=== PATIENT | male | born 1975 ===

== ENCOUNTER 2017-06-16 02:07 | Emergency (ER) | payer SELFPAY ==
--- NOTE | 2017-06-16 02:23 | C.PDOC ---
History Of Present Illness 42 y/o male brought in by EMS for public intoxication. Patient was reportedly found on bus and refused to get off. He offers no physical complaints at this time. No suicidal or homicidal ideation. Time Seen by Provider: 06/16/17 02:22 Chief Complaint (Nursing): Substance Abuse History Per: Patient History/Exam Limitations: no limitations Onset/Duration Of Symptoms: Hrs Current Symptoms Are (Timing): Still Present Suicide/Self Injury Attempted (Context): None Modifying Factor(s): Alcohol Severity: None Pain Scale Rating Of: 0 Involuntary Hold By: None Recent travel outside of the [place]: No Additional History Per: EMS Past Medical History Reviewed: Historical Data, Nursing Documentation, Vital Signs Vital Signs: Last Vital Signs Temp 98.1 F 06/16/17 02:10 Pulse 78 06/16/17 02:10 Resp 18 06/16/17 02:10 BP 119/83 06/16/17 02:10 Pulse Ox 98 06/16/17 02:50 - Medical History PMH: No Chronic Diseases Surgical History: No Surg Hx Family History: States: No Known Family Hx - Social History Hx Alcohol Use: Yes Hx Substance Use: No - Immunization History Hx Tetanus Toxoid Vaccination: No Hx Influenza Vaccination: No Hx Pneumococcal Vaccination: No Review Of Systems Respiratory: Negative for: Shortness of Breath Gastrointestinal: Negative for: Vomiting Psych: Negative for: Suicidal ideation Physical Exam - Physical Exam Appears: Non-toxic, No Acute Distress Skin: Warm, Dry Head: Normacephalic Eye(s): bilateral: Normal Inspection Oral Mucosa: Moist Neck: Supple Chest: Symmetrical Cardiovascular: Rhythm Regular Respiratory: No Rales, No Rhonchi, No Wheezing Gastrointestinal/Abdominal: Soft, No Tenderness, No Distention Extremity: Bilateral: Atraumatic, Normal ROM Neurological/Psych: Other (sleepy but arousable to verbal stimuli) ED Course And Treatment O2 Sat by Pulse Oximetry: 98 (RA) Pulse Ox Interpretation: Normal Progress Note: Accucheck done, finger stick is 91. Patient is resting comfortably. Pending clinical sobriety Reevaluation Time: 05:39 Reassessment Condition: Improved Disposition Counseled Patient/Family Regarding: Studies Performed, Diagnosis, Need For Followup - Disposition Referrals: [facility] [Outside] Disposition: HOME/ ROUTINE Disposition Time: 02:22 Condition: FAIR Instructions: Alcohol Abuse and Alcoholism (DC) Forms: [facility] (Indonesian) - Clinical Impression Clinical Impression: Alcohol intoxication - Scribe Statement The provider has reviewed the documentation as recorded by the Blayne Mckeon Provider Attestation: All medical record entries made by the Geriibteri were at my direction and personally dictated by me. I have reviewed the chart and agree that the record accurately reflects my personal performance of the history, physical exam, medical decision making, and the department course for this patient. I have also personally directed, reviewed, and agree with the discharge instructions and disposition.
[2017-06-16 06:17] VITALS: BP 115/70; PULSE 68; RESP 20; TEMP 96.9; O2SAT 95
== END 2017-06-16 06:07 | disposition home or self-care (01) ==
LOC: C.ER 02:07 → SUPCPDRO 02:07 → C.ER 06:07
DX: F10.129 Alcohol abuse with intoxication, unspecified (principal); Y90.9 Presence of alcohol in blood, level not specified